=== PATIENT | female | born 1980 | race Caucasian/White ===

== ENCOUNTER 2017-11-25 07:33 | Outpatient (CLI) | payer MEDICAID | END 2017-11-25 07:34 | disposition critical access hospital (66) | LOC: EMS 07:33 | PROVIDERS: ATTEND Surgery | DX: M79.1 Myalgia (principal) | CPT/HCPCS: A0425; A0429 ==

== ENCOUNTER 2017-11-25 07:36 | Emergency (ER) | payer MEDICAID ==
[2017-11-25 07:44] VITALS: BP 142/96
[2017-11-25] MEDS ORDERED: ONDANSETRON ODT 4 MG TABLET TL STA (07:44)
[2017-11-25] MEDS ORDERED: cloNIDine 0.1 MG TABLET PO STA (07:45)
[2017-11-25 08:00] LABS: BASOPHILS % (AUTO) 0.6 %; EOSINOPHILS # (AUTO) 0.1 10^3/uL (0.0-0.7); EOSINOPHILS % (AUTO) 1.2 %; HCT - HEMATOCRIT 36.6 % (37.0-47.0); HGB - HEMOGLOBIN 12.5 g/dL (12.0-16.0); LYMPHOCYTES # (AUTO) 1.6 10^3/uL (1.5-3.5); LYMPHOCYTES % (AUTO) 18.8 %; MEAN CORPUSCULAR HEMOGLOBIN 29.6 pg (27.0-31.0); MEAN CORPUSCULAR HGB CONC 34.1 g/dL (32.0-36.0); MEAN CORPUSCULAR VOLUME 86.8 fL (81.0-99.0); MEAN PLATELET VOLUME 6.9 fL (7.9-10.8); MONOCYTES # (AUTO) 0.5 10^3/uL (0.0-1.0); MONOCYTES % (AUTO) 5.6 %; NEUTROPHILS # (AUTO) 6.2 10^3/uL (1.5-6.6); NEUTROPHILS % (AUTO) 73.8 %; RED BLOOD COUNT 4.22 10^6/uL (4.20-5.40); RED CELL DISTRIBUTION WIDTH 13.5 % (12.0-15.0); UNCORRECTED WHITE BLOOD COUNT 8.4 x10^3/uL; WHITE BLOOD COUNT 8.4 x10^3/uL (4.8-10.8)
--- NOTE | 2017-11-25 08:08 | ED Physician Documentation ---
History of Present Illness - Stated complaint Stated Complaint: WITHDRAWL - Chief complaint Chief Complaint: General - History obtained from History obtained from: Patient, EMS - History of Present Illness Timing: How many days ago (3) - Additonal information Additional information: Patient is a 37 year old female with a history of colon CA who is presenting to the emergency department for opiod withdrawal. patient states that she ran out of her medications about three days ago and has not been feeling well, and just feels overly weak. Patient denies any vomiting, fever or chills but states that she has not been eating well. Patient states that she feels like her heart is racing. Upon initial evaluation in the emergency department patient was well appearing with normal vital signs. Review of Systems Constitutional: reports: Chills, Myalgias. denies: Fever Eyes: denies: Decreased vision, Photophobia Ears: denies: Ear pain, Drainage/discharge Nose: reports: Rhinorrhea / runny nose, Congestion, Sinus pressure / pain Throat: denies: Sore throat Cardiac: reports: Palpitations. denies: Chest pain / pressure, Calf pain Respiratory: denies: Dyspnea, Cough, Wheezing GI: denies: Abdominal Pain, Nausea, Vomiting, Constipation : denies: Dysuria, Frequency, Hesitancy Immunocompromised: denies: Immunocompromised PD PAST MEDICAL HISTORY - Past Medical History Past Medical History: Yes Cardiovascular: None Respiratory: None Neuro: Head injury Endocrine/Autoimmune: None GI: Hiatal hernia, Other : Retention, Incontinence, Chronic bladder infection HEENT: None Psych: Depression, Anxiety, Panic attacks, ADD/ADHD, Post traumatic stress disorder, Claustrophobia, Obsessive compulsive disorder, Eating disorder Musculoskeletal: None Derm: None - Past Surgical History Past Surgical History: Yes General: Colonoscopy, Other /FAMILY COURT [employer]SE[employer]OR: section, Other Cardiovascular: Other - Present Medications Home Medications: Ambulatory Orders Medication Instructions Recorded Confirmed Buprenorphine HCl 8 mg SL BID 02/16/15 12/10/16 Lorazepam [Ativan] 1 mg PO BID PRN 02/16/15 12/10/16 Zolpidem Tartrate [Ambien] 10 mg PO QPM PRN 02/16/15 12/10/16 clonazePAM [Klonopin] 1 mg PO BID 02/16/15 12/10/16 Dextroamphetamine/Amphetamine 60 mg PO DAILY #21 tablet 08/28/16 12/10/16 [Adderall 20 mg Tablet] Ondansetron Odt [Zofran Odt] 4 mg TL Q6H PRN #20 tablet 11/25/17 cloNIDine [Catapres] 0.1 mg PO DAILY #5 tablet 11/25/17 - Allergies Allergies/Adverse Reactions: Allergies Allergy/AdvReac Type Severity Reaction Status Date / Time No Known Drug Allergies Allergy Verified 02/16/15 18:00 - Social History Does the pt smoke?: No Smoking Status: Never smoker - Immunizations Immunizations are current?: Yes PD ED PE NORMAL - Vitals Vital signs reviewed: Yes - General General: Alert and oriented X 3 - HEENT HEENT: Atraumatic, PERRL, Moist mucous membranes - Neck Neck: Supple, no meningeal sign - Cardiac Cardiac: RRR, No murmur - Respiratory Respiratory: No respiratory distress - Abdomen Abdomen: Soft, Non tender, Non distended - Derm Derm: Normal color, Warm and dry, No rash - Extremities Extremities: No deformity, No tenderness to palpate, No edema - Neuro Neuro: Alert and oriented X 3, No motor deficit, No sensory deficit, Normal speech Eye Opening: Spontaneous Motor: Obeys Commands Verbal: Oriented GCS Score: 15 - Psych Psych: Normal mood PD ED PE EXPANDED - Abdomen Abdomen: Other (colostomy bag in place, abdomen soft non tender) Results - Vitals Vitals: Vital Signs - 24 hr 11/25/17 07:38 Temperature 36.3 C L Heart Rate 83 Respiratory 16 Rate Blood Pressure 142/96 H O2 Saturation 100 Oxygen O2 Source Room air - Labs Labs: Laboratory Tests 11/25/17 11/25/17 07:50 07:50 WBC 8.4 RBC 4.22 Hgb 12.5 Hct 36.6 L MCV 86.8 MCH 29.6 MCHC 34.1 RDW 13.5 Plt Count 485 H MPV 6.9 L Neut # 6.2 Lymph # 1.6 [place] # 0.5 Eos # 0.1 Baso # 0.0 Absolute Nucleated RBC 0.00 Nucleated RBC % 0.0 Sodium 136 Potassium 4.1 Chloride 100 L Carbon Dioxide 26 Anion Gap 10.0 BUN 8 Creatinine 0.6 Estimated GFR (MDRD) 111 Glucose 105 H Calcium 9.2 Total Bilirubin 0.4 AST 15 ALT 14 Alkaline Phosphatase 76 Total Protein 7.8 Albumin 3.4 Globulin 4.4 H Albumin/Globulin Ratio 0.8 L Lipase 20 L PD MEDICAL DECISION MAKING - ED course Complexity details: reviewed old records, reviewed results, re-evaluated patient , considered differential, d/w patient ED course: Patient was seen and examined at bedside. patient's vital signs were within normal limits. labs were drawn. patient was treated with zofran and clonopine. While benzodiazapam withdrawal was considered it was unlikely. Patient had not had medications in 3 days and showed no symptoms of withdrawal. Patient's diagnostics were within normal limits. patient required no further work up and was stable for discharge with outpatient follow up. Departure - Departure Disposition: Home, Self Care Clinical Impression: Opiate withdrawal Condition: Good Instructions: ED Withdrawal Narcotic Follow-Up: Renee Hendrickson FNP [Primary Care Provider] - Within 3 Days Prescriptions: cloNIDine [Catapres] 0.1 mg PO DAILY #5 tablet Ondansetron Odt [Zofran Odt] 4 mg TL Q6H PRN #20 tablet PRN Reason: Nausea / Vomiting Comments: Your diagnostics today were within normal limits. While opiod withdrawal can be uncomfortable it is not life threatening. You will need to call your physician today for refills for your medications. You can take the zofran for nausea and make sure you stay well hydrated with gatorade and electrolyte solutions. You may return to the emergency department at any time for new, worsening or uncontrollable symptoms. Discharge Date/Time: 11/25/17 08:32
[2017-11-25 08:09] LABS: ALBUMIN/GLOBULIN RATIO 0.8 (1.0-2.2); BILIRUBIN,TOTAL 0.4 mg/dL (0.2-1.0); CALCIUM 9.2 mg/dL (8.5-10.3); CREATININE 0.6 mg/dL (0.4-1.0); POTASSIUM 4.1 mmol/L (3.5-5.0); TOTAL PROTEIN 7.8 g/dL (6.7-8.2)
== END 2017-11-25 08:32 | disposition home or self-care (01) ==
LOC: EDUNIT# → ED 07:36
DX: F11.23 Opioid dependence with withdrawal (principal)
CPT/HCPCS: 36415; 80053; 83690; 85025; 99283; A9270; Q0162

== ENCOUNTER 2018-03-23 08:00 | Outpatient (CLI) | payer MEDICAID ==
[2018-03-23 19:01] LABS: BILIRUBIN,URINE NEGATIVE (NEGATIVE); GLUCOSE, URINE (UA) NEGATIVE (NEGATIVE); KETONES,URINE (UA) NEGATIVE (NEGATIVE); LEUKOCYTE ESTERASE, URINE NEGATIVE (NEGATIVE); NITRITE,URINE NEGATIVE (NEGATIVE); OCCULT BLOOD,URINE MODERATE (NEGATIVE); PH,URINE 5.5 PH (5.0-7.5); PROTEIN,URINE NEGATIVE (NEGATIVE); UROBILINOGEN,URINE 0.2 (NORMAL) E.U./dL (NORMAL)
[2018-03-23 19:08] LABS: CLARITY,URINE CLEAR (CLEAR)
[2018-03-23 19:09] LABS: BACTERIA,URINE Few /HPF (None Seen); RBC,URINE 0-5 /HPF (0-5); SQUAMOUS EPITHELIAL CELL,UR MANY Squamous (<= Few)
== END 2018-03-23 08:01 ==
LOC: LAB.R 08:00
PROVIDERS: ATTEND Physician Assistant Medical
DX: R31.9 Hematuria, unspecified (principal); R39.15 Urgency of urination
CPT/HCPCS: 81001; 87086

== ENCOUNTER 2019-07-07 08:00 | Outpatient (CLI) | payer MEDICAID ==
[2019-07-07 18:32] LABS: CALCIUM 9.3 mg/dL (8.5-10.3); CREATININE 0.7 mg/dL (0.4-1.0)
[2019-07-07 19:19] LABS: BASOPHILS # (AUTO) 0.1 10^3/uL (0.0-0.1); BASOPHILS % (AUTO) 0.6 %; EOSINOPHILS # (AUTO) 0.2 10^3/uL (0.0-0.7); EOSINOPHILS % (AUTO) 2.2 %; HGB - HEMOGLOBIN 13.4 g/dL (12.0-16.0); LYMPHOCYTES # (AUTO) 1.7 10^3/uL (1.5-3.5); LYMPHOCYTES % (AUTO) 22.2 %; MEAN CORPUSCULAR HGB CONC 32.8 g/dL (32.0-36.0); MEAN CORPUSCULAR VOLUME 91.3 fL (81.0-99.0); MEAN PLATELET VOLUME 10.4 fL (7.9-10.8); MONOCYTES # (AUTO) 0.6 10^3/uL (0.0-1.0); NEUTROPHILS # (AUTO) 5.2 10^3/uL (1.5-6.6); NEUTROPHILS % (AUTO) 66.7 %; PLT - PLATELET COUNT 270 10^3/uL (130-450); RED BLOOD COUNT 4.47 10^6/uL (4.20-5.40); RED CELL DISTRIBUTION WIDTH 12.9 % (12.0-15.0); WHITE BLOOD COUNT 7.8 x10^3/uL (4.8-10.8)
== END 2019-07-07 23:59 | disposition home or self-care (01) ==
LOC: LAB.N 08:00
PROVIDERS: ATTEND Physician Assistant Medical
DX: Z01.812 Encounter for preprocedural laboratory examination (principal)
CPT/HCPCS: 36415; 80048; 85025

== ENCOUNTER 2020-01-19 08:00 | Outpatient (CLI) | payer MEDICAID ==
[2020-01-19 19:18] LABS: BILIRUBIN,URINE NEGATIVE (NEGATIVE); GLUCOSE, URINE (UA) NEGATIVE (NEGATIVE); KETONES,URINE (UA) NEGATIVE (NEGATIVE); LEUKOCYTE ESTERASE, URINE NEGATIVE (NEGATIVE); NITRITE,URINE POSITIVE (NEGATIVE); OCCULT BLOOD,URINE SMALL (NEGATIVE); PROTEIN,URINE NEGATIVE (NEGATIVE); UROBILINOGEN,URINE 0.2 (NORMAL) E.U./dL (NORMAL)
[2020-01-19 19:23] LABS: CLARITY,URINE CLEAR (CLEAR)
[2020-01-19 19:44] LABS: BACTERIA,URINE Many /HPF (None Seen); MUCUS,URINE Few Strands; SQUAMOUS EPITHELIAL CELL,UR FEW Squamous (<= Few)
== END 2020-01-19 23:59 | disposition home or self-care (01) ==
LOC: LAB.R 08:00
PROVIDERS: ATTEND Physician Assistant Medical
DX: N39.0 Urinary tract infection, site not specified (principal)
CPT/HCPCS: 81001; 81003; 87086; 87181